=== PATIENT | female | born 1985 | race Caucasian/White ===

== ENCOUNTER 2017-11-04 08:30 | Day surgery (SDC) | payer OTHER ==
[~2017-11-04 08:30] MED LIST: DEXAMETHASONE SOD PHOSPHATE 10 MG/ML 1 ML VIAL IV ONE; HEPARIN SODIUM,PORCINE 5,000 UNIT/ML 1 ML VIAL SQ ONE; HYDROmorphone 0.5 MG/0.5 ML SYRINGE IVP PRN; LACTATED RINGERS 1,000 ML IV SCH; MORPHINE SULFATE 4 MG/ML SYRINGE IV PRN; ONDANSETRON 4 MG/2 ML VIAL IVP ONE; ceFAZolin IN SWFI 2 GM/20 ML SYRINGE IVP ONE
[2017-11-04] MEDS ORDERED: SCOPOLAMINE 1.5MG/72HR PATCH TRANSDERM ONE (09:03)
[2017-11-04] MEDS ORDERED: LIDOCAINE 1% 20 ML VIAL (10MG/ML) FOR IV START INTRADERMA ONE (09:04)
[2017-11-04 09:08] LABS: Basophils % (A) 1 %; Eosinophils # (A) 0.1 k/uL (0-0.7); Eosinophils % (A) 1 %; HCT 40.4 % (34.0-46.0); HGB 12.8 gm/dL (11.4-16.0); Lymphocytes # (A) 1.4 k/uL (1.0-4.8); Lymphocytes % (A) 22 %; MCHC 31.7 g/dL (31.0-37.0); MCV 81.9 fL (80.0-100.0); Monocytes # (A) 0.3 k/uL (0-1.0); Monocytes % (A) 5 %; Neutrophils # (A) 4.4 k/uL (1.3-7.7); Neutrophils % (A) 69 %; Platelet Count 287 k/uL (150-450); RBC 4.93 m/uL (3.80-5.40); RDW 13.3 % (11.5-15.5); WBC 6.4 k/uL (3.8-10.6)
[2017-11-04] MEDS ORDERED: LIDOCAINE 1% INJ 10MG/ML (20 ML MDV) ONE (10:31)
[2017-11-04] MEDS ORDERED: MIDAZOLAM 2 MG/2 ML VIAL ONE (10:31)
[2017-11-04] MEDS ORDERED: PROPOFOL 10 MG/ML 20 ML VIAL IV ONE (10:31)
[2017-11-04] MEDS ORDERED: ROCURONIUM BROMIDE 10 MG/ML 10 ML VIAL IV ONE (10:31)
[2017-11-04] MEDS ORDERED: SUCCINYLCHOLINE CHLORIDE 100 MG/5 ML SYR IV ONE (10:31)
[2017-11-04] MEDS ORDERED: GLYCOPYRROLATE 0.2 MG/ML 2 ML VIAL ONE (10:31)
[2017-11-04] MEDS ORDERED: HYDROmorphone (PF) 1 MG/ML ONE (10:31)
[2017-11-04] MEDS ORDERED: NEOSTIGMINE 1 MG/ML 10 ML VIAL ONE (10:31)
[2017-11-04] MEDS ORDERED: fentaNYL (PF) 50 MCG/ML 2 ML AMP ONE (10:31)
[2017-11-04] MEDS ORDERED: BUPIVACAINE (PF) 0.25% 30 ML VIAL SQ ONE (10:37)
[2017-11-04] MEDS ORDERED: LACTATED RINGERS 1,000 ML IV ONE (11:49)
[2017-11-04 12:13] VITALS: TEMP 97.8
[2017-11-04] MEDS ORDERED: KETOROLAC 30 MG/ML 1 ML VIAL IVP ONE (12:15)
[2017-11-04] MEDS ORDERED: PROMETHAZINE INJ 25 MG/ML 1 ML VIAL IVPB ONE (12:20)
--- NOTE | 2017-11-04 12:51 | P.OP ---
Date of Procedure: 11/04/17 Preoperative Diagnosis: Umbilical hernia Postoperative Diagnosis: Same Procedure(s) Performed: Robotic assist laparoscopic umbilical hernia repair with mesh [address] Implants: Ventralight ST mesh 8 cm circular Anesthesia: NIMISHA local Surgeon: Lydia Webster Pathology: none sent Condition: stable Disposition: PACU Indications for Procedure: 32 years old female presents with umbilical hernia and known diastasis recti. Informed consent obtained and patient elected to undergo robotic-assisted laparoscopic umbilical hernia repair with mesh. Operative Findings: Diastasis recti along anterior midline 2 x 2 cm hernia defect at the umbilicus containing preperitoneal fat Description of Procedure: The patient was brought to the operating room and placed in supine position. General anesthesia with endotracheal intubation was performed as per anesthesia team. The right arm was tucked against the body and a footboard was applied. Chlorhexidine was used to prep the skin followed by application of sterile drapes and Ioban dressing. A timeout was performed to verify correct patient and correct procedure. Patient was confirmed to receive perioperative IV antibiotics , bilateral SCDs and 5000 units of subcutaneous heparin for VTE prophylaxis. A 5 mm skin incision was made along the left midaxillary line and a Veress needle was inserted to establish the pneumoperitoneum to a pressure of 15 mm of Hg. Using a 5 mm 30 laparoscope the peritoneal cavity was entered using the Optiview technique. Additional 8 mm trocar was placed in the mid axillary line in the left mid abdomen and robotic 8 mm trocar in the left lower abdomen. The 5 mm trocar was upsized to 8 mm robotic trocar. The da Chidi robot was then docked. The 30 robotic camera was used. A robotic prograsp and monopolar scissors were inserted through 8 mm robotic trocars The umbilical hernia defect contained preperitoneal fat which was reduced using gentle traction and countertraction method. A [address] circular mesh was rolled and introduced to the abdominal cavity via the 8 mm trocar. The hernia defect was closed primarily with running sutures using O- V lock by taking 1 cm bite on the fascia on either side of the defect. The mesh was circumferentially sutured to the peritoneum of the anterior abdominal wall using 2-0 V lock without any folds or kinks. The robot was then undocked. Laparoscopic 30 degrees camera was reinserted. All trocar sites were examined. No evidence of bleeding. The pneumoperitoneum was evacuated and all the skin incisions were closed using 4-0 Monocryl followed by Dermabond skin glue. Telfa and Tegaderm dressings were applied. The sponge, instrument and needle count were correct x2. Abdominal binder was applied. The patient was extubated and taken to post anesthesia care unit in stable condition.
[2017-11-04 13:02] VITALS: RESP 16
[2017-11-04] MEDS ORDERED: HYDROcodone/APAP 5-325MG 1 EACH TAB PO ONE (13:29)
[2017-11-04 13:51] VITALS: PULSE 61
[2017-11-04 14:24] VITALS: BP 121/56
== END 2017-11-04 14:51 | disposition home or self-care (01) ==
LOC: OR 08:30
PROVIDERS: ATTEND Surgery
DX: K42.0 Umbilical hernia with obstruction, without gangrene (principal); Z79.3 Long term (current) use of hormonal contraceptives; Z79.891 Long term (current) use of opiate analgesic; Z79.899 Other long term (current) drug therapy; Z88.8 Allergy status to other drugs, medicaments and biological substances
CPT/HCPCS: 81025; 86900; 86901; 85025; 86850; 49652; C1781; J2250; J1644; J1100; J2550; J2710; J0690; J2405; J2001; J3010; J1885; J1170; J0330; J2704; S2900

== ENCOUNTER 2019-05-17 03:27 | Inpatient (IN) | payer BC ==
[2019-05-17] MEDS ORDERED: CITRIC ACID-SODIUM CITRATE 15 ML CUP PO ONE (04:16)
[2019-05-17] MEDS: LACTATED RINGERS 1,000 ML IV SCH ×5 (04:40→21:42)
[2019-05-17 04:47] VITALS: BMI 27.3
[2019-05-17 04:59] LABS: Basophils % (A) 0 %; Eosinophils # (A) 0.1 k/uL (0-0.7); Eosinophils % (A) 1 %; HGB 9.9 gm/dL (11.4-16.0); Hypochromasia Marked; Lymphocytes # (A) 1.5 k/uL (1.0-4.8); Lymphocytes % (A) 14 %; MCH 22.1 pg (25.0-35.0); MCHC 31.1 g/dL (31.0-37.0); MCV 71.2 fL (80.0-100.0); Mean Platelet Volume 7.5; Microcytosis Moderate; Monocytes # (A) 0.6 k/uL (0-1.0); Monocytes % (A) 5 %; Neutrophils # (A) 8.2 k/uL (1.3-7.7); Neutrophils % (A) 77 %; Platelet Count 271 k/uL (150-450); Poikilocytosis Slight; RBC 4.49 m/uL (3.80-5.40); RDW 15.7 % (11.5-15.5); WBC 10.8 k/uL (3.8-10.6)
[2019-05-17] MEDS ORDERED: ONDANSETRON 4 MG/2 ML VIAL ONE (06:06)
[2019-05-17] MEDS ORDERED: MORPHINE SULFATE (PF) 0.3 MG/0.3 ML SYR ONE (06:06)
[2019-05-17] MEDS ORDERED: fentaNYL (PF) 50 MCG/ML 2 ML AMP ONE (06:06)
[2019-05-17] MEDS ORDERED: NALBUPHINE 10 MG/ML (1 ML AMP) ONE (06:06)
[2019-05-17] MEDS ORDERED: OXYTOCIN 10 UNIT/ML 1 ML VIAL ONE (06:06)
[2019-05-17] MEDS ORDERED: diphenhydrAMINE 50 MG CAP PO PRN (06:48)
[2019-05-17] MEDS ORDERED: diphenhydrAMINE 50 MG/ML 1 ML VIAL IVP PRN ×3 (06:48)
[2019-05-17] MEDS ORDERED: METOCLOPRAMIDE 5 MG/ML 2 ML VIAL IVP PRN (06:48)
[2019-05-17] MEDS ORDERED: NALBUPHINE 10 MG/ML (1 ML AMP) IV PRN (06:48)
[2019-05-17] MEDS ORDERED: diphenhydrAMINE 25 MG CAP PO PRN (06:48)
[2019-05-17] MEDS ORDERED: SIMETHICONE 80 MG CHEWABLE PO PRN (06:48)
[2019-05-17] MEDS ORDERED: NALOXONE 0.4 MG/ML 1 ML VIAL IV PRN ×2 (06:48)
[2019-05-17] MEDS ORDERED: ZOLPIDEM 5 MG TAB PO PRN (06:48)
[2019-05-17] MEDS ORDERED: ONDANSETRON 4 MG/2 ML VIAL IVP PRN ×2 (06:48)
[2019-05-17] MEDS ORDERED: MORPHINE SULFATE 2 MG/ML SYRINGE IVP PRN (06:48)
[2019-05-17] MEDS ORDERED: OXYTOCIN 20 UNITS/1000 ML NS 1,000 ML IV SCH (07:00)
[2019-05-17] MEDS: KETOROLAC 30 MG/ML 1 ML VIAL IVP PRN ×2 (08:12→20:02)
--- NOTE | 2019-05-17 09:01 | P.OP ---
Date of Procedure: 05/17/19 Preoperative Diagnosis: 1. at 39 weeks 2. Previous 3. Spontaneous rupture membranes 4. family planning Postoperative Diagnosis: 1. at 39 weeks 2. Previous 3. Spontaneous rupture membranes 4. Family planning Procedure(s) Performed: Repeat low transverse with tubal ligation Anesthesia: spinal Surgeon: Faby Villarreal Box Annealer #1: Anthony Edwards Estimated Blood Loss (ml): 600 IV fluids (ml): 1,000 Urine output (ml): 800 Pathology: none sent Condition: stable Disposition: floor Operative Findings: Viable female, Apgars 8, 9. Description of Procedure: Patient was taken to the operating room where spinal anesthesia was found be adequate. She was prepped and draped in normal sterile fashion in dorsal supine position with a leftward tilt. Pfannenstiel skin incision was made the scalpel and carried through to the underlying layer of fascia with the scalpel. Fascia was incised in midline and carried bilaterally with the Banks scissors. The superior aspect of the fascial incision was grasped with [place] clamps elevated and the underlying rectus muscles dissected off with the Banks's. Attention was then turned to inferior aspect of same incision which in a similar fashion was grasped tented up and the underlying rectus muscles dissected off with the Banks's. The rectus muscles were the midline and the peritoneum was identified tented up and entered sharply with the scalpel. The incision was extended superiorly and inferiorly with good visualization of the bladder. The bladder blade was inserted and the vesicouterine peritoneum was incised the Metzenbaums then carried bilaterally and bladder flap created digitally. A low transverse incision was then made on the uterus with the scalpel. This was chung ied bilaterally and digital manner. Infant's head delivered atraumatically, nose and mouth bulb suctioned, cord clamped and cut, infant handed off to waiting nurses. Apgars 8,9, weight pending. Placenta delivered manually, intact with three-vessel cord. The uterus is exteriorized and cleared of all clots and debris. The uterine incision was closed with 0 Vicryl in a running locked fashion. Second layer of the same sutures used in imbricating fashion to obtain excellent hemostasis. Both ovaries and tubes appeared normal. The right fallopian tube was grasped with a hemostat and a window was made in the mesosalpinx with the Bovie. The right fallopian tube was doubly ligated and a section was removed. The pedicles were cauterized with the Bovie. The left fallopian tube was grasped with a hemostat and a window was made in the mesosalpinx with the Bovie. The left fallopian tube was doubly ligated and a section was removed. The pedicles were cauterized with the Bovie .The uterus w as placed back into the abdomen. The peritoneum was reapproximated using 2-0 Vicryl in a running fashion. The fascia was reapproximated using 0 Vicryl in a running fashion. The subcutaneous tissues closed with 3-0 Vicryl running fashion. The skin was closed dianna. Patient tolerated the procedure well, sponge and instrument counts were correct times 2 and she was taken to the recovery room in stable condition.
[2019-05-17] MEDS: SENNOSIDES-DOCUSATE SODIUM 1 EACH TAB PO SCH ×2 (09:23→20:01)
[2019-05-18] MEDS: LACTATED RINGERS 1,000 ML IV SCH (00:15)
[2019-05-18] MEDS: IBUPROFEN 600 MG TAB PO PRN ×3 (02:33→18:20)
--- NOTE | 2019-05-18 07:31 | P.HPOB ---
History of Present Illness H&P Date: 05/17/19 Chief Complaint: SROM 34 year old presents with SROM at 39 weeks. She has had 2 prior c-sections and will have her third with a TL. Review of Systems All systems: negative Constitutional: Denies chills, Denies fever Eyes: denies blurred vision, denies pain Ears, nose, mouth and throat: Denies headache, Denies sore throat Cardiovascular: Denies chest pain, Denies shortness of breath Respiratory: Denies cough Gastrointestinal: Denies abdominal pain, Denies diarrhea, Denies nausea, Denies vomiting Genitourinary: Denies dysuria, Denies hematuria Musculoskeletal: Denies myalgias Integumentary: Denies pruritus, Denies rash Neurological: Denies numbness, Denies weakness Psychiatric: Denies anxiety, Denies depression Endocrine: Denies fatigue, Denies weight change Past Medical History Past Medical History: No Reported History Additional Past Medical History / Comment(s): current umbilical hernia History of Any Multi-Drug Resistant Organisms: None Reported Past Surgical History: Section, Orthopedic Surgery Additional Past Surgical History / Comment(s): leep, L hip tendon repair, reconstruction of nose Past Anesthesia/Blood Transfusion Reactions: Motion Sickness, Postoperative Nausea & Vomiting (PONV) Past Psychological History: No Psychological Hx Reported, Anxiety, Depression Additional Psychological History / Comment(s): PPA and PPD Smoking Status: Never smoker Past Alcohol Use History: None Reported Past Drug Use History: None Reported - Past Family History Father Family Medical History: No Reported History Medications and Allergies Home Medications Medication Instructions Recorded Confirmed Type Pnv,Calcium 72/Iron/Folic Acid 1 each PO DAILY 05/17/19 05/17/19 History [ Plus Tablet] Ranitidine HCl [Zantac] 150 mg PO HS 05/17/19 05/17/19 History Allergies Allergy/AdvReac Type Severity Reaction Status Date / Time naproxen [From Naprosyn] Allergy Rash/Hives Verified 05/17/19 03:31 Exam Osteopathic Statement: *. No significant issues noted on an osteopathic structural exam other than those noted in the History and Physical/Consult. Vital Signs Temp Pulse Resp BP Pulse Ox 05/18/19 06:00 14 05/18/19 04:00 98.1 F 67 14 97/47 100 05/18/19 02:00 16 05/18/19 00:00 98.5 F 74 14 98/58 100 05/17/19 22:00 16 05/17/19 20:00 98.1 F 68 14 112/68 100 05/17/19 16:56 16 05/17/19 15:41 98.4 F 78 18 104/65 100 05/17/19 15:00 98.4 F 78 18 104/65 100 05/17/19 13:00 16 05/17/19 12:00 98.1 F 62 16 115/53 98 05/17/19 11:48 98 05/17/19 11:00 16 98 05/17/19 09:10 16 100 05/17/19 08:54 97.2 F L 54 L 16 104/59 100 05/17/19 08:22 60 16 116/63 100 05/17/19 07:54 96.9 F L 67 16 122/66 100 05/17/19 07:46 16 100 05/17/19 07:39 59 L 16 117/57 100 Intake and Output 05/17/19 05/18/19 05/18/19 22:59 06:59 14:59 Intake Total 840 Output Total 900 1000 Balance -60 -1000 Intake: Intake, IV Titration 600 Amount Lactated Ringers 1,000 ml 600 @ 125 mls/hr IV .Q8H KATRIN Rx#:[id number] Oral 240 Output: Urine 900 1000 Uretheral ([place]) 300 Other: # Voids 1 2 HEart:" RRR Lungs: CTAB ABdomen: soft, nontender Extremeties: neg ludy's Results Result Diagrams: 05/17/19 04:40 Assessment and Plan (1) SROM (spontaneous rupture of membranes) Current Visit: Yes Status: Acute Code(s): [id number] - SNOMED Code(s): 329235525 (2) Previous section Current Visit: Yes Status: Acute Code(s): Z98.891 - HISTORY OF UTERINE SCAR FROM PREVIOUS SURGERY SNOMED Code(s): 995074762 Plan: 1. prep for RLTCS with TL
[2019-05-18 08:04] LABS: Basophils % (A) 0 %; Eosinophils # (A) 0.1 k/uL (0-0.7); Eosinophils % (A) 1 %; HGB 8.9 gm/dL (11.4-16.0); Hypochromasia Marked; Lymphocytes # (A) 1.5 k/uL (1.0-4.8); Lymphocytes % (A) 13 %; MCH 21.9 pg (25.0-35.0); MCHC 30.5 g/dL (31.0-37.0); MCV 71.8 fL (80.0-100.0); Mean Platelet Volume 8.1; Microcytosis Moderate; Monocytes # (A) 0.7 k/uL (0-1.0); Monocytes % (A) 6 %; Neutrophils # (A) 8.4 k/uL (1.3-7.7); Neutrophils % (A) 76 %; Platelet Count 251 k/uL (150-450); Poikilocytosis Slight; RBC 4.04 m/uL (3.80-5.40); RDW 15.9 % (11.5-15.5)
[2019-05-18] MEDS: ACETAMINOPHEN TAB 325 MG TAB PO PRN ×2 (08:41→14:41)
[2019-05-18] MEDS: SENNOSIDES-DOCUSATE SODIUM 1 EACH TAB PO SCH ×2 (08:41→21:29)
--- NOTE | 2019-05-18 09:53 | P.PN ---
Progress Note - Text Anesthesia POD 1, 0645. Patient is status post section under spinal anesthesia with intra-thecal preservative free morphine 300 g. Mild pruritus, excellent post-op analgesia, and no headache or other complications.
[2019-05-18] MEDS: HYDROcodone/APAP 7.5-325MG 1 EACH TAB PO PRN (21:28)
[2019-05-19] MEDS: IBUPROFEN 600 MG TAB PO PRN ×3 (00:20→12:20)
[2019-05-19] MEDS: HYDROcodone/APAP 7.5-325MG 1 EACH TAB PO PRN ×2 (03:19→09:09)
[2019-05-19 08:09] VITALS: BP 103/59; PULSE 71; RESP 16; TEMP 97.8
[2019-05-19] MEDS: SENNOSIDES-DOCUSATE SODIUM 1 EACH TAB PO SCH (10:07)
--- NOTE | 2019-05-19 12:02 | P.DS ---
Providers Date of admission: 05/17/19 03:54 Expected date of discharge: 05/19/19 Attending physician: Faby Villarreal Primary care physician: Stated None Hospital Course: This is a 34-year-old female 3 para 2 at 39-0/7 weeks who presented with spontaneous rupture membranes. She underwent a repeat section with tubal ligation on 05/17/2019 and delivered a viable female . Her post operative course has been uncomplicated. Lochia is decreasing. Pain is fairly well controlled. She has been using ibuprofen and Charlotte for pain control. She is passing flatus and bowel movement. Baby is breast-feeding. Vital signs are stable. Abdomen is soft with fundus firm and nontender. Incision is clean dry and intact with dianna in place. Extremities show negative Homans. Impression is status post repeat section with tubal ligation postoperative day #2. Plan is to discharge home today. Routine postoperative instructions are given. She will be given a prescription for ibuprofen and Charlotte. She has signed the start opioid form and was counseled on opioid use. She is advised to follow up with Dr. Villarreal in 1 week for a postoperative check and in 6 weeks for check. Routine postoperative and instructions are given. She is advised to call the office if she has any further questions or concerns prior to her appointment times. Procedures: Repeat low transverse section with bilateral partial salpingectomy on 05/17/2019 Patient Condition at Discharge: Stable Plan - Discharge Summary New Discharge Prescriptions: New Ibuprofen [Motrin] 600 mg PO Q6HR PRN #60 tab PRN Reason: Mild Pain Or Fever >= 100.5 HYDROcodone/APAP 7.5-325MG [Charlotte 7.5-325] 1 each PO Q6H PRN #28 tab PRN Reason: Severe Pain Continue Pnv,Calcium 72/Iron/Folic Acid [ Plus Tablet] 1 each PO DAILY No Action Ranitidine HCl [Zantac] 150 mg PO HS Discharge Medication List Pnv,Calcium 72/Iron/Folic Acid [ Plus Tablet] 1 each PO DAILY 05/17/19 [History] Ranitidine HCl [Zantac] 150 mg PO HS 05/17/19 [History] HYDROcodone/APAP 7.5-325MG [Charlotte 7.5-325] 1 each PO Q6H PRN #28 tab 05/19/19 [Rx] Ibuprofen [Motrin] 600 mg PO Q6HR PRN #60 tab 05/19/19 [Rx] Follow up Appointment(s)/Referral(s): Faby Villarreal DO [Doctor of Osteopathic Medicine] - 1 Week Activity/Diet/Wound Care/Special Instructions: Instructions 1. Do not begin any exercise program for 3 weeks. 2. Do not resume sexual relations for 3 weeks or longer if uncomfortable. 3. You may take tub baths or showers at any time. 4. You may use tampons if desired after 3 weeks. 5. Keep the area of episiotomy (stitches) clean and dry. 6. If you are not nursing, wear a good fitting, supportive bra during the day and limit fluid intake for at least 1 week to prevent breast engorgement. 7. Call the office, [phone], within the next week to make appointment for your 6 week checkup if it has not already been made. 8. Report any of the following occurrences to the doctor promptly: a. Heavy, excessive bleeding b. Chills, fever c. Burning or frequency of urination d. Pain or redness and breasts if nursing e. Increasing pain or swelling in episiotomy (stitches). In addition to the above instructions, the following additional should be followed: 1. No heavy lifting or straining (exercising) until after 6 week checkup. 2. Keep abdominal incision clean and dry: You may wear a dressing if more comfortable. 3. Make office appointment for 10 days after going home or as instructed by her doctor. Discharge Disposition: HOME SELF-CARE
== END 2019-05-19 12:48 | disposition home or self-care (01) | DRG 785 ==
LOC: FBPOP 03:27 → 4FBP 03:54
PROVIDERS: ADMIT Obstetrics & Gynecology; ATTEND Obstetrics & Gynecology
PROC: 0UB70ZZ Excision of Bilateral Fallopian Tubes, Open Approach (ICD-10-PCS; 2019-05-17)
PROC: 10D00Z1 Extraction of Products of Conception, Low, Open Approach (ICD-10-PCS; principal; 2019-05-17 06:10)
DX: O34.211 Maternal care for low transverse scar from previous cesarean delivery (principal); O99.72 Diseases of the skin and subcutaneous tissue complicating childbirth; L29.9 Pruritus, unspecified; O99.62 Diseases of the digestive system complicating childbirth; K42.9 Umbilical hernia without obstruction or gangrene; K21.9 Gastro-esophageal reflux disease without esophagitis; Z37.0 Single live birth; Z3A.39 39 weeks gestation of pregnancy; Z30.2 Encounter for sterilization
CPT/HCPCS: 59025; 84112; 85025; 86850; 86900; 86901; 99213

== ENCOUNTER 2020-08-13 07:11 | Emergency (ER) | payer BC ==
--- NOTE | 2020-08-13 07:45 | ED ---
Chest Pain HPI - General Chief Complaint: Chest Pain Stated Complaint: Chest Pain Time Seen by Provider: 08/13/20 07:23 Source: patient Mode of arrival: ambulatory Limitations: no limitations - History of Present Illness Initial Comments: 35-year-old female who denies significant PMH presenting today for chief complaint of chest discomfort. Patient states that 11 PM last night she developed discomfort in her chest she states it was a significant pressure over the anterior portion. She denies radiation. She states that at times throughout the night has become sharp she states hour later she was woken again by a feeling of indigestion. She states she has had some paresthesias of the left arm today denies any jaw pain. She states she has a very mild pressure at this time. Patient denies nausea, vomiting, shortness of breath, leg swelling, exogenous hormone use, recent surgeries or travel denies cancer, hx of DVT/PE. Patient denies hemoptysis, or URI symptoms/fevers. Patient does endorse a history of anxiety and states this feels different than her typical anxious feeling. Patient denies smoking history. She appears well nontoxic on arrival- she is not diaphoretic. - Related Data Home Medications Medication Instructions Recorded Confirmed Pnv,Calcium 72/Iron/Folic Acid 1 tab PO HS 05/17/19 08/13/20 [ Plus Tablet] Allergies Allergy/AdvReac Type Severity Reaction Status Date / Time naproxen [From Naprosyn] Allergy Rash/Hives Verified 08/13/20 08:51 Review of Systems ROS Statement: Those systems with pertinent positive or pertinent negative responses have been documented in the HPI. ROS Other: All systems not noted in ROS Statement are negative. EKG Findings - EKG Comments: EKG Findings:: Ventricular rate 78 bpm, NJ interval 134 ms, QRS ration 80 ms, QT/QTc is 370/421. This is normal sinus. Significant artifact in leads 1 and [address] segments appear within normal limits. Repeat EKG: Ventricular rate 65 bpm, NJ interval 130 ms, cure she should 92 ms, QT/QTC 380/395 ms. This is normal sinus with a sinus arrhythmia. No ST elevation or depression Past Medical History Past Medical History: No Reported History Additional Past Medical History / Comment(s): current umbilical hernia History of Any Multi-Drug Resistant Organisms: None Reported Past Surgical History: Section, Orthopedic Surgery Additional Past Surgical History / Comment(s): leep, L hip tendon repair, reconstruction of nose Past Anesthesia/Blood Transfusion Reactions: Motion Sickness, Postoperative Nausea & Vomiting (PONV) Past Psychological History: No Psychological Hx Reported, Anxiety, Depression Smoking Status: Never smoker Past Alcohol Use History: Occasional Past Drug Use History: None Reported - Past Family History Father Family Medical History: No Reported History General Exam - General Exam Comments Initial Comments: General: The patient is awake and alert, in no distress, patient is not diaph oretic negative Batres sign Eye: Pupils are equal, round and reactive to light, extra-ocular movements are intact. No nystagmus. There is normal conjunctiva bilaterally. No signs of icterus. Ears, nose, mouth and throat: There are moist mucous membranes and no oral lesions. Neck: The neck is supple, there is no tenderness or JVD. Cardiovascular: There is a regular rate and rhythm. No murmur, rub or gallop is appreciated. Respiratory: Lungs are clear to auscultation, respirations are non-labored, breath sounds are equal. No wheezes, stridor, rales, or rhonchi. Musculoskeletal: Normal ROM, no tenderness. Strength 5/5. Sensation intact. Radial pulses equal bilaterally 2+. Neurological: A&O x 3. CN II-XII intact grossly, There are no obvious motor or sensory deficits. Coordination appears grossly intact. Speech is normal. Skin: Skin is warm and dry and no rashes or lesions are noted. No lower extremity edema no calf pain to palpation no swelling noted Psychiatric: Cooperative, appropriate mood & affect, normal judgment. Limitations: no limitations Course Vital Signs 08/13/20 08/13/20 08/13/20 07:17 08:17 10:30 Temperature 98.4 F Pulse Rate 64 73 75 Respiratory 18 18 18 Rate Blood Pressure 101/68 102/58 97/53 O2 Sat by Pulse 100 99 99 Oximetry 08/13/20 11:22 Temperature 98.1 F Pulse Rate 76 Respiratory 14 Rate Blood Pressure 94/52 O2 Sat by Pulse 98 Oximetry Chest Pain MDM - MDM Patient presented for chest pain. Low heart score. EKG no acute findings. D- dimer negative. Initial and second troponin negative. Patient asymptomatic. She continues to state that she thinks this was only anxiety. At this time after discussing the case with attending provider Dr. Laird we feel patient is stable for discharge with outpatient follow-up and did recommend outpatient stress testing. Patient discharged appearing well Disposition Clinical Impression: Chest discomfort Disposition: HOME SELF-CARE Condition: Good Instructions (If sedation given, give patient instructions): Chest Pain (ED) Additional Instructions: Please use medication as discussed. Please follow-up with family doctor in the next 2 days, recommend outpatient stress testing-return for worsening symptoms. Please return to emergency room if the symptoms increase or worsen or for any other concerns. Is patient prescribed a controlled substance at d/c from ED?: No Referrals: None,Stated [Primary Care Provider] - 1-2 days Time of Disposition: 10:58
[2020-08-13 07:55] LABS: Basophils # (A) 0.1 k/uL (0-0.2); Basophils % (A) 1 %; Eosinophils # (A) 0.2 k/uL (0-0.7); Eosinophils % (A) 3 %; HGB 12.7 gm/dL (11.4-16.0); Lymphocytes # (A) 0.9 k/uL (1.0-4.8); Lymphocytes % (A) 14 %; MCH 27.2 pg (25.0-35.0); MCHC 32.5 g/dL (31.0-37.0); MCV 83.8 fL (80.0-100.0); Mean Platelet Volume 7.5; Monocytes # (A) 0.4 k/uL (0-1.0); Monocytes % (A) 7 %; Neutrophils % (A) 74 %; Platelet Count 198 k/uL (150-450); RBC 4.65 m/uL (3.80-5.40); RDW 13.2 % (11.5-15.5); WBC 6.8 k/uL (3.8-10.6)
[2020-08-13] MEDS ORDERED: ALPRAZolam 0.25 MG TAB PO STA (07:59)
[2020-08-13 08:08] LABS: ALT 15 U/L (4-34); AST 21 U/L (14-36); African American GFR (CKD) >90 (>60 ml/min/1.73 sqM); Albumin 4.6 g/dL (3.5-5.0); Alkaline Phosphatase 66 U/L (38-126); Anion Gap 7 mmol/L; Blood Urea Nitrogen 18 mg/dL (7-17); Calcium 9.6 mg/dL (8.4-10.2); Carbon Dioxide 24 mmol/L (22-30); Chloride 105 mmol/L (98-107); Glucose 106 mg/dL (74-99); Magnesium 1.9 mg/dL (1.6-2.3); Non-African American GFR(CKD) >90 (>60 ml/min/1.73 sqM); Potassium 4.1 mmol/L (3.5-5.1); Sodium 136 mmol/L (137-145); Total Bilirubin 0.6 mg/dL (0.2-1.3); Total Protein 7.8 g/dL (6.3-8.2)
[2020-08-13 08:11] LABS: D-Dimer 0.23 mg/L FEU (<0.60); INR 0.9 (<1.2); Partial Thromboplastin Time 24.6 sec (22.0-30.0); Prothrombin Time 9.6 sec (9.0-12.0)
--- NOTE | 2020-08-13 08:15 | XR ---
EXAMINATION TYPE: XR chest 2V DATE OF EXAM: 08/13/2020 COMPARISON: NONE HISTORY: Chest pain into left arm. TECHNIQUE: Frontal and lateral views of the chest are obtained. FINDINGS: There is no focal air space opacity, pleural effusion, or pneumothorax seen. The cardiac silhouette size is within normal limits. The osseous structures are intact. IMPRESSION: No acute process identified.
[2020-08-13 11:24] VITALS: BP 94/52; PULSE 76; RESP 14; TEMP 98.1
== END 2020-08-13 11:24 | disposition home or self-care (01) ==
LOC: EC 07:11
DX: R07.89 Other chest pain (principal); Z88.6 Allergy status to analgesic agent
CPT/HCPCS: 36415; 71046; 80053; 83735; 84484; 85025; 85379; 85610; 85730; 93005; 99285

== ENCOUNTER → 2023-08-11 | Outpatient (CLI) | payer BC ==
--- NOTE | 2023-08-11 13:08 | USB ---
Reason for Exam: Clinical finding. Risk Values: Tatyana 5 year model risk: 0.2%. NCI Lifetime model risk: 6.8%. Technique: Method: Targeted. Findings: The upper section of the breast of the right breast, the axilla of the right breast and the retroareolar of the right breast were scanned. Technique utilized:US breast limited RT Image; Ultrasound imaging of: Area of concern, retroareolar region and axilla. No evidence for organizing fluid collection or mass. Overall Assessment: Negative, BI-RAD 1 Management: Screening Mammogram of both breasts at age 42. A clinical breast exam by your physician is recommended on an annual basis and results should be correlated with mammographic findings. This exam should not preclude additional follow-up of suspicious palpable abnormalities. Results were given to the patient verbally at the time of exam. Electronically signed and approved by: Arsenio Severino DO
== END | disposition home or self-care (01) ==
LOC: RADUSWWP 12:19
PROVIDERS: ATTEND Obstetrics & Gynecology
DX: N63.10 Unspecified lump in the right breast, unspecified quadrant (principal)